=== PATIENT | male | born 1970 | race Caucasian/White ===

== ENCOUNTER 2016-05-14 09:00 | Outpatient (CLI) | payer MEDICARE, MEDICAID | END 2016-05-14 09:01 | disposition home or self-care (01) | DX: R40.0 Somnolence (principal); D50.0 Iron deficiency anemia secondary to blood loss (chronic) ==

== ENCOUNTER 2016-05-14 10:52 | Outpatient (CLI) | payer MEDICARE, MEDICAID | END 2016-05-14 10:53 | disposition home or self-care (01) | DX: J20.9 Acute bronchitis, unspecified (principal); R40.0 Somnolence; D50.0 Iron deficiency anemia secondary to blood loss (chronic) ==